=== PATIENT | female | born 1985 | race Caucasian/White ===

== ENCOUNTER 2017-09-29 17:44 | Observation (INO) | payer OTHER ==
[~2017-09-29] VITALS: Ht 154.9 cm; Wt 57.6 kg
[~2017-09-29 17:44] MED LIST: AMOXIL500 MG PO; BACTRIM DS 8001 TAB PO; BUPRENORPHINE HC8 MG SL; PROTONIX40 M3 PO; ZOFRAN ODT4 M1 SL
--- NOTE | 2017-09-29 18:02 | ED GI/GU/ABDOMINAL COMPLAINT ---
History of Present Illness General Chief Complaint: Abdominal Pain/Flank Pain Stated Complaint: SENT FROM OUTPATIENT FOR ACUTE JASON Source: patient Exam Limitations: no limitations Vital Signs & Intake/Output Vital Signs & Intake/Output Vital Signs Date Time Temp Pulse Resp B/P B/P Pulse O2 O2 Flow FiO2 Mean Ox Delivery Rate 09/30 1638 98.3 75 20 124/58 100 Room Air 09/30 1526 99.4 68 18 120/80 96 ED Intake and Output 10/01 0000 09/30 1200 Intake Total 500 800 Output Total 200 Balance 300 800 Intake, IV 800 Intake, Oral 500 0 Output, Urine 200 Allergies Coded Allergies: NO KNOWN ALLERGIES (05/24/12) Triage Note: PT WALKED OVER FROM OUT PT US , PT HERE DUE TO GALL STONES. PT STATES THAT MONDAY THAT SHE STARTED WITH RUQ ABD PAIN THAT SHOOTS INTO HER BACK, HAD N/V ON MONDAY. STATES THAT SINCE IT HAS JUST BEEN SHARP PAIN. DENIES FEVERS. Triage Nurses Notes Reviewed? yes ? N Is pt currently ? No Onset: Gradual Duration: day(s): (6) Timing: no prior history Quality/Severity: sharpness, stabbing Severity Numbers: 8 Location: epigastric, right upper quadrant Activities at Onset: none Prior Abdominal Problems: none No Modifying Factors: none Associated Symptoms: N/V HPI: Patient is a 32-year-old female with history of opiate abuse presenting to the emergency Department chief complaint of epigastric and right upper quadrant pain that began approximately 6 days ago, with onset she had associated nausea and vomiting which lasted one day and then resolved. No diarrhea. She was seen and evaluated in the emergency department and diagnosed with gastritis. Pain improved with GI cocktail. Patient saw her primary care physician after being seen at the hospital and they ordered an outpatient ultrasound. Patient diagnosed with acute cholecystitis and sent to the ER for further evaluation and surgical consultation. Patient denies any nausea at this time. Pain is currently moderate. (Buddy SALVADOR,Maribel) Reconcile Medications Biotin (Unknown Strength) TAB.CHEW (Unknown Dose) PO DAILY SUPPLEMENT ( Reported) Buprenorphine HCl/Naloxone HCl (Suboxone 8 MG-2 MG Sl Film) 8 MG-2 MG FILM 1 STR SL BID MENTAL HEALTH (Reported) Buprenorphine HCl/Naloxone HCl (Suboxone 8 MG-2 MG Sl Film) 8 MG-2 MG FILM 0.5 STR SL QPM MENTAL HEALTH (Reported) Multiple Vitamin (Multivitamins) 1 EACH TABLET 1 TAB PO DAILY SUPPLEMENT ( Reported) Ondansetron (Zofran Odt) 4 MG TAB.RAPDIS 1 TAB SL TID PRN nausea Pantoprazole Sodium (Protonix) 40 MG TABLET.DR 1 TAB PO DAILY gastritis Tramadol HCl 50 MG TABLET 1-2 TAB PO Q4P PRN PAIN Vitamin B Complex 1 EACH CAPSULE 1 CAP PO DAILY SUPPLEMENT (Reported) (Ary GAINES,Tiffanie) Past History Travel History Traveled to [place] past 21 day No Medical History Any Pertinent Medical History? see below for history Neurological: NONE Cardiovascular: NONE Respiratory: NONE Gastrointestinal: NONE Hepatic: NONE Renal: NONE Musculoskeletal: chronic back pain Psychiatric: anxiety Endocrine: NONE Blood Disorders: NONE Cancer(s): NONE Surgical History Surgical History: non-contributory Psychosocial History What is your primary language Romansh Tobacco Use: Current Daily Use Daily Tobacco Use Amount/Type: => 5 Cigarettes daily ETOH Use: denies use Illicit Drug Use: denies illicit drug use Family History Hx Contributory? No (Maribel Ortega) Review of Systems Review of Systems Constitutional: Reports: see HPI. Comments Review of systems: See HPI, All other systems negative. Constitutional, no chills fever or weight loss HEENT: No visual changes no sore throat no congestion Cardiovascular: No chest pain ,palpitation Skin, no jaundice no rashes Respiratory: No dyspnea cough sputum or hemoptysis GI: No DIARRHEA : No dysuria No hematuria Muscle skeletal: no back pain, no neck pain, Neurologic: No numbness no confusion NO HEADACHES Psych: No stress anxiety or depression,. Heme/endocrine: No bruising no bleeding no polyuria or polydipsia Immunology: No splenectomy or history of AIDS (Maribel Ortega) Physical Exam Physical Exam General Appearance: well developed/nourished, no apparent distress, alert, awake Gastrointestinal: normal bowel sounds, soft, guarding, tenderness Comments: Well-developed well-nourished person in NO DISTRESS HEENT: ATRAUMATIC, NORMAL CEPHALIC Neck: NORMAL INSPECTION Back: Nontender, no CVA tenderness. Cardiovascular: Regular rate and rhythms no murmurs rubs or gallops Respiratory: Chest nontender. No respiratory distress.breath sounds clear to auscultation bilaterally Abdomen: Soft, DIFFUSE TENDERNERSS, MORE FOCALLY IN RUQ, POS BHATT SIGN, nondistended, no appreciable organomegaly. Normal bowel sounds. No ascites, POS GAURDING. Extremity: No edema Neuro: Alert oriented x3 Skin: No appreciable rash on exposed skin, skin is warm and dry. Psych: Mood and affect is normal, memory and judgment is normal. Core Measures ACS in differential dx? No Sepsis Present: No Sepsis Focused Exam Completed? No (Maribel Ortega) Progress Differential Diagnosis: appendicitis, biliary colic, cholecystitis, diverticulitis, gastritis, hepatitis, pancreatitis Plan of Care: Orders Procedure Date/time Status Regular Diet 09/30 D Active Discharge Patient 09/30 UNK Active Current Medications Sig/Yfn Start time Last Medication Dose Stop Time Status Admin Oxycodone HCl 10 MG Q4P PRN 09/30 1145 CAN (Roxicodone) Diagnostic Imaging: Viewed by Me: Ultrasound. Discussed w/RAD: Ultrasound. Radiology Impression: PATIENT: LOC SCHULZ PRESENT AGE: 32 PATIENT ACCOUNT NO: [id number] : 87 LOCATION: [facility] ORDERING PHYSICIAN: Anastasiia Epperson APRN SERVICE DATE: 09/29/176708 EXAM TYPE: US - US-COMPLETE ABDOMEN EXAMINATION: US ABDOMEN COMPLETE CLINICAL INFORMATION: Refer for abdominal ultrasound for right lower quadrant abdominal pain and epigastric tenderness. Patient states recurrent right upper quadrant pain since Monday, necessitating 2 emergency room visits. COMPARISON: None TECHNIQUE: Real-time imaging of the abdominal viscera. FINDINGS: PANCREAS: Normal. ABDOMINAL AORTA: The proximal segment is normal in caliber. INFERIOR VENA CAVA: Visualized portions are normal. LIVER: Normal. The liver demonstrates normal size, contour and echogenicity. No focal lesion or intrahepatic biliary duct dilatation. GALLBLADDER: Abnormal. The gallbladder is mildly enlarged, measuring 11 cm longitudinally and 4 cm transversely. There is abnormal gallbladder wall thickening and edema with the gallbladder wall measuring up to 0.4 cm in diameter. There is layering sludge within the gallbladder, and a 10 out of 10 positive sonographic Bhatt sign is elicited while scanning over the gallbladder. There is a 0.9 x 0.3 x 0.4 cm echogenic nonshadowing focus seen adherent to the anterior gallbladder wall, consistent with a small gallbladder polyp. No definite gallstones are seen. Findings are consistent with acute cholecystitis. COMMON BILE DUCT: Normal in caliber measuring 0.5 cm in diameter. RIGHT KIDNEY: Normal. No hydronephrosis. No renal calculi or focal parenchymal lesions. The kidney measures 10.4 cm in maximum dimension. LEFT KIDNEY: Normal. No hydronephrosis. No renal calculi or focal parenchymal lesions. The kidney measures 9.3 cm in maximum dimension. SPLEEN: Normal. The spleen measures 9.5 cm in maximum dimension. FREE FLUID: None. IMPRESSION: 1. Above findings are consistent with acute cholecystitis. Close clinical correlation is requested. 2. Otherwise unremarkable right upper quadrant ultrasound. Findings discussed with Dr. Garcia covering for Dr. Epperson 09/29/2017, 5:[address] Looney's instructions, the patient has been escorted to the emergency room for further evaluation. Findings also discussed with Dr. Tiffanie Mcallister 09/29/2017, approximately 5:48 PM. DICTATED BY: Kerri Pollock MD DATE/TIME DICTATED:09/29 TRAY CHECKER:LINO DATE/TIME TRANSCRIBED:09/29/171745 CONFIDENTIAL, DO NOT COPY WITHOUT APPROPRIATE AUTHORIZATION. Initial ED EKG: none (Maribel Ortega) Departure Departure Time of Disposition: 1923 Disposition: STILL A PATIENT Condition: Stable Clinical Impression Primary Impression: Acute cholecystitis Referrals: Anastasiia Epperson APRN (PCP/Family) Departure Forms: Customer Survey General Discharge Information Observation Note Spoke With: Case GAINES,Magdiel Zabala Physician Advisor Notified: EMILIA PHELAN DO Place Patient In: Non-ED OBS Care Area Rationale for Observation: My rational for observation is as follows . Patient requiring IV antibiotics, surgical intervention to remove gallbladder, pain management. (Maribel Ortega) Departure Prescriptions: Current Visit Scripts Tramadol HCl 1-2 TAB PO Q4P PRN PAIN #30 TAB PA/STRAIGHT TRUCK DRIVER Co-Sign Statement Statement: ED Attending supervision documentation- [] I saw and evaluated the patient. I have also reviewed all the pertinent lab results and diagnostic results. I agree with the findings and the plan of care as documented in the PA's/STRAIGHT TRUCK DRIVER's documentation. [X] I have reviewed the ED Record and agree with the PA's/STRAIGHT TRUCK DRIVER's documentation. [] Additions or exceptions (if any) to the PAs/STRAIGHT TRUCK DRIVER's note and plan are summarized below: [] (Ary GAINES,Tiffanie) Initial ED EKG: none Departure Departure Time of Disposition: 1923 Disposition: STILL A PATIENT Condition: Stable Clinical Impression Primary Impression: Acute cholecystitis Referrals: Anastasiia Epperson APRN (PCP/Family) Departure Forms: Customer Survey General Discharge Information Observation Note Spoke With: Case GAINES,Magdiel Zabala Physician Advisor Notified: EMILIA PHELAN DO Place Patient In: Non-ED OBS Care Area Rationale for Observation: My rational for observation is as follows . Patient requiring IV antibiotics, surgical intervention to remove gallbladder, pain management.
[2017-09-29 18:11] LABS: ABSOLUTE BASOPHIL COUNT 0 /CUMM (0.0-0.2); ABSOLUTE EOSINOPHIL COUNT 0.1 /CUMM (0.0-0.7); ABSOLUTE GRANULOCYTE CT 5.4 /CUMM (1.4-6.5); ABSOLUTE LYMPH COUNT 1.6 /CUMM (1.2-3.4); ABSOLUTE MONOCYTE COUNT 0.6 /CUMM (0.10-0.60); BASOPHIL % 0.1 % (0.0-2.0); EOSINOPHIL % 1.1 % (0-5); GRANULOCYTE % 70.6 % (42.2-75.2); MEAN CORPUSCULAR HGB CONC 33.1 G/DL (33.0-37.0); MEAN CORPUSCULAR VOLUME 87.5 FL (81.0-99.0); MEAN PLATELET VOLUME 7.9 FL (7.4-10.4); PLATELET COUNT 359 /CUMM (130-400); RBC DISTRIBUTION WIDTH 13.1 % (11.5-14.5); RED BLOOD CELL CT 5.03 /CUMM (4.20-5.40); WHITE BLOOD CELL COUNT 7.7 /CUMM (4.8-10.8)
[2017-09-29 18:19] LABS: PT 12.1 SEC (9.4-12.5); PTT 26 SEC (25-37)
[2017-09-29] MEDS ORDERED: SUBOXONE 8 MG-1 EACH SL ×2 (19:36→19:37)
[2017-09-29] MEDS ORDERED: BIOTIN1000 MC1 PO (19:37)
[2017-09-29] MEDS ORDERED: MULTIVITAMINS1 EAC9 PO (19:37)
[2017-09-29] MEDS ORDERED: VITAMIN B COMP1 EACH PO (19:38)
--- NOTE | 2017-09-29 19:49 | History & Physical ---
John Meyers 09/[birth year]171943: General Information and HPI History of Present Illness: This is a 32 y/o F w/ PMHx of tobacco use (1/2 ppd x 15 years) and documented opiate abuse that presents to [facility] ED with 6 day history of worsening epigastric and right upper quadrant pain. Patient states she was in her usual state of health until last 09/25/17, she had a acute onset of epigastric pain associated with some nausea. At that time patient came to the [facility] ED where she was diagnosed with gastritis. She was discharged home with a perscription for protonix and zofran with instructions to follow up with a art model. Her pain continued and worsened the following days when she attempted to come back to [place] ED as she was instructed to do so, but was not seen "because the wait was to long". At that time she then made a appointment with her primary care provider who ordered a outpatient ultrasound of her abdomen. Ultrasound showed acute cholecystits, therefore patient was sent the the ED for further evaluation. In the ED the patient appears in no acute distress. She expressed frustration with this ongoing abdominal pain and was using foul language upon evaluation. She is afebrile and other vital signs are within normal limits. CBC, chemistry, and LFTs were obtained and showed no leukocytosis, e-lytes wnl, and normal LFTs. US shows acute cholecystitis. Therefore, a surgical consult was obtained. Allergies/Medications Allergies: Coded Allergies: NO KNOWN ALLERGIES (05/24/12) Home Med list Biotin (Unknown Strength) TAB.CHEW (Unknown Dose) PO DAILY SUPPLEMENT ( Reported) Buprenorphine HCl/Naloxone HCl (Suboxone 8 MG-2 MG Sl Film) 8 MG-2 MG FILM 1 STR SL BID MENTAL HEALTH (Reported) Buprenorphine HCl/Naloxone HCl (Suboxone 8 MG-2 MG Sl Film) 8 MG-2 MG FILM 0.5 STR SL QPM MENTAL HEALTH (Reported) Multiple Vitamin (Multivitamins) 1 EACH TABLET 1 TAB PO DAILY SUPPLEMENT ( Reported) Ondansetron (Zofran Odt) 4 MG TAB.RAPDIS 1 TAB SL TID PRN nausea Pantoprazole Sodium (Protonix) 40 MG TABLET.DR 1 TAB PO DAILY gastritis Vitamin B Complex 1 EACH CAPSULE 1 CAP PO DAILY SUPPLEMENT (Reported) Past History Travel History Traveled to [place] past 21 day No Medical History Neurological: NONE Cardiovascular: NONE Respiratory: NONE Gastrointestinal: NONE Hepatic: NONE Renal: NONE Musculoskeletal: chronic back pain Psychiatric: anxiety Endocrine: NONE Blood Disorders: NONE Cancer(s): NONE Surgical History Surgical History: non-contributory Past Family/Social History Psychosocial History ETOH Use: denies use Illicit Drug Use: denies illicit drug use Review of Systems Review of Systems Constitutional: Reports: see HPI. Exam & Diagnostic Data Last 24 Hrs of Vital Signs/I&O Vital Signs Date Time Temp Pulse Resp B/P B/P Pulse O2 O2 Flow FiO2 Mean Ox Delivery Rate 09/29 1840 Room Air 09/29 1751 98.4 92 18 127/88 Physical Exam General Appearance Alert, Oriented X3, No Acute Distress Skin No Rashes HEENT Atraumatic Cardiovascular Regular Rate, Normal S1, Normal S2, No Murmurs Lungs Clear to Auscultation, Normal Air Movement Abdomen RUQ pain with palpation, + murphys sign, bowel sounds present, mild guarding, no distention/rigidity Neurological Cranial Nerves 3-12 NL Extremities No Edema Vascular Normal Pulses Last 24 Hrs of Labs/Duong: Laboratory Tests 09/29/17 1800: Anion Gap 12, Estimated GFR > 60, BUN/Creatinine Ratio 17.8, Glucose 101 H, Lactic Acid 0.9, Calcium 9.8, Total Bilirubin 0.5, AST 14, ALT 31, Alkaline Phosphatase 68, Total Protein 7.3, Albumin 4.2, Globulin 3.1, Albumin/Globulin Ratio 1.4, Lipase 74, Total Beta HCG NEGATIVE, PT 12.1, INR 1.11, APTT 26, CBC w Diff NO MAN DIFF REQ, RBC 5.03, MCV 87.5, MCH 29.0, MCHC 33.1, RDW 13.1, MPV 7.9 , Gran % 70.6, Lymphocytes % 20.4 L, Monocytes % 7.8, Eosinophils % 1.1, Basophils % 0.1, Absolute Granulocytes 5.4, Absolute Lymphocytes 1.6, Absolute Monocytes 0.6, Absolute Eosinophils 0.1, Absolute Basophils 0 Assessment/Plan Assessment: A: This is a 32 y/o F w/ PMHx of tobacco use (1/2 ppd x 15 years) and documented opiate abuse that presents to [facility] ED with 6 day history of worsening epigastric and right upper quadrant pain with sonographic evidence of acute cholecystitis. She currently is HD stable, afebrile, and normal LFTs. She will be admited to surgical service under DR. Willoughby with plans for Laparoscopic cholecystectomy tomorrow morning. P: Discussed with Dr. Willoughby GI: regular diet now, NPO after midnight, OR tomorrow morning for Lap choly, zofran PRN CV: monitor vitals per protocol Pulm: pulm toilet w/ deep breathing/coughing Neuro: high risk opiod dependence, try to avoid narcotics post op, may need to contact patient pain manamgent provider, will give low dose IV morphine for now PRN ID: start IV unasyn, monitor for fevers : monitor I&Os Heme: h&h stable, athrombic pumps Fluids/e-lytes: IVFs @ 100mL/hr overnight Ortho: encourage ambulating as tolerated As Ranked By This Provider Problem List: 1. Acute cholecystitis Core Measures/Misc (04/09) Acute Coronary Syndrome ACS Diagnosis: No Congestive Heart Failure Congestive Heart Failure Diagnosis No Cerebrovascular Accident CVA/TIA Diagnosis: No VTE (View Protocol) VTE Risk Factors Surgery No Mechanical VTE Prophylaxis d/t N/A MechProphylax Ordered No VTE Pharm Prophylaxis d/t Surgical Contraindication Sepsis (View protocol) Sepsis Present: No Magdiel Willoughby MD 09/30/17 0804: Attending MD Review Statement Attending Statement Attending MD Statement: examined this patient, discuss w/resident/PA/DIRECTOR, reviewed images Attending Assessment/Plan: 32yo woman with first episode of abdominal pain, epigastric/RUQ that has been present for 5 days. Progression and examination c/w severe cholecystitis. Ultrasound confirms diagnosis. Recommend IV abx and prompt laparoscopic cholecystectomy. Informed of risks of surgery including bleeding, infection, conversion to open, organ injury and post cholecystectomy diarrhea. she agrees.
[2017-09-29 21:17] VITALS: BP 118/58
[2017-09-30 06:07] VITALS: BP 114/62
[2017-09-30 08:50] LABS: ABSOLUTE BASOPHIL COUNT 0 /CUMM (0.0-0.2); ABSOLUTE EOSINOPHIL COUNT 0.2 /CUMM (0.0-0.7); ABSOLUTE LYMPH COUNT 1.8 /CUMM (1.2-3.4); ABSOLUTE MONOCYTE COUNT 0.5 /CUMM (0.10-0.60); BASOPHIL % 0.2 % (0.0-2.0); EOSINOPHIL % 3.3 % (0-5); GRANULOCYTE % 61.1 % (42.2-75.2); MEAN CORPUSCULAR HGB 29.4 PG (27.0-31.0); MEAN CORPUSCULAR HGB CONC 33.6 G/DL (33.0-37.0); MEAN CORPUSCULAR VOLUME 87.4 FL (81.0-99.0); MEAN PLATELET VOLUME 8.2 FL (7.4-10.4); PLATELET COUNT 272 /CUMM (130-400); RBC DISTRIBUTION WIDTH 12.8 % (11.5-14.5); WHITE BLOOD CELL COUNT 6.5 /CUMM (4.8-10.8)
[2017-09-30 08:55] VITALS: BP 110/70
[2017-09-30 09:57] LABS: RED BLOOD CELL CT 3.77 /CUMM (4.20-5.40)
--- NOTE | 2017-09-30 11:46 | Operative Report ---
Operative/Inv Procedure Report Surgery Date: 09/30/17 Name of Procedure: Laparoscopic cholecystectomy Pre-Operative Diagnosis: Acute cholecystitis Post-Operative Diagnosis: Same Estimated Blood Loss: less than 50ml Surgeon/Center Sales And Service Associate: Case GAINES,Magdiel Zabala/Yari SALVADOR Anesthesia: general endotracheal tube Drains: None Specimens: Gallbladder Operative Indication: 32-year-old woman with 5 days of worsening right upper quadrant abdominal pain. She is found to have acute cholecystitis clinically and radiographically and presents for resection Operative/Procedure Note Note: After informed consent patient is brought to the operating room and laid supine. General anesthesia was obtained and her abdomen was prepped and draped. The skin above the umbilicus infiltrated with local anesthesia and a curvilinear incision made sharply. We came down through the subcutaneous tissues bluntly and grasped the fascia with [place]'s. A fasciotomy was created sharply and stay sutures placed. The peritoneum was entered sharply and a blunt Thurman port was placed. Pneumoperitoneum was achieved. 3, 5 mm ports were placed in the epigastrium and right upper quadrant after local anesthesia was instilled and under direct vision the camera. The right lower quadrant was explored and there was pelvis fluid, serosanguineous. The appendix was normal. She's placed in reverse Trendelenburg and rotated towards the left. The gallbladder is identified. It was severely inflamed and difficult to grasp due to the chronic and acute inflammatory changes. Percutaneous aspiration was performed. It was grasped at the dome and retracted towards the head. Infundibulum was then grasped. Adhesions to the undersurface were taken down with blunt and cautery dissection. The adhesions were quite thick and dense making the dissection difficult. We dissected both sides the triangle Calot peritoneal tissue with cautery. The artery was medial and its normal anatomic position. Location of the calot node assisted in identification. It was cauterized medially to allow it to be mobilized away from the duct. [place] was cleared of areolar tissue with cautery and blunt dissection. The arteries and duct were doubly ligated with clips. Gallbladder is removed from the fossa electrocautery. Posterior wall was quite edematous and chronically thickened making dissection prolonged. Gallbladder was placed in Endo Catch bag and cinched up. Right upper quadrant was and suction irrigated normal saline. Hemostasis achieved with cautery. The ports were then removed and the gallbladder delivered and passed off the field. The fascia was closed with 0 Vicryl suture. Skin incisions closed with 4-0 Vicryl. Steri-Strips and sterile dressing applied. Sponge and needle counts are correct. CC: Anastasiia Epperson APRN
--- NOTE | 2017-09-30 14:54 | PN- General Surgery ---
Subjective Subjective: Postop check Pt is now POD #0 s/p laparoscopic cholecystectomy. She is doing ok since surgery. Admits to pain, but recently recieved Tramadol with no response yet. Also c/o gas pains, which are improving with ambulation. Pt lost IV access and 1st attempt at replacement was not successful, so she refused further attempts and did not recieve IV Unasyn. Objective Vital Signs and I&Os Vital Signs Date Time Temp Pulse Resp B/P B/P Pulse O2 O2 Flow FiO2 Mean Ox Delivery Rate 09/30 0855 98.1 58 18 110/70 96 / 0607 98.7 63 20 114/62 96 / 2117 99.0 72 20 118/58 98 Room Air 09/29 2025 98.4 98 16 124/79 100 Room Air 09/29 1840 Room Air 09/29 1751 98.4 92 18 127/88 Intake & Output 09/30 1600 09/30 0800 / 0000 / 1600 09/29 0800 09/29 0000 Intake Total 800 1580 Output Total Balance 800 1580 Intake, IV 800 1100 Intake, Oral 0 480 Patient 127 lb Weight Physical Exam: Gen: Pt is awake and alert. NAD. Cardiac: regular Pulm: CTA bilaterally Abd: Soft and mildly distended. Dressings are clean and intact. +BS Assessment/Plan Assessment/Plan Pt is a 32 yo F with a hx of opioid dependence, now on Suboxone, who is s/p laparoscopic cholecystectomy for acute cholecystitis. -Ok to advance diet as tolerated. IVF were heplocked when IV access was lost initially. Pt is tolerating po liquids. -One dose of unasyn was ordered postop due to significantly edematous gallbladder noted intraop, but pt refused replacement of IV, so med wasn't given. -Continue ambulation as much as possible to relieve gas pains. -Tylenol or tramadol for pain control, as narcotics will not likely work well given suboxone. We can try toradol if needed as well. -OK to discharge home soon. Core Measures Venous Thromboembolism VTE Risk Factors Surgery No Mechanical VTE Prophylaxis d/t N/A MechProphylax Ordered No VTE Pharm Prophylaxis d/t Surgical Contraindication
--- NOTE | 2017-09-30 15:17 | Patient Discharge Instructions ---
Discharge Instructions General Discharge Information You were seen/treated for: Acute cholecystitis You had these procedures: Laparoscopic cholecystectomy Watch for these problems: Fever >101, increased abdominal pain, chest pain, difficulty breathing, drainage from wound. Do not soak the wound: Yes No bath, but you may shower: Yes Other wound care: You may remove your Band-Aids on 10/01/2017 and shower as desired. Leave the Steri-Strips in place until they fall off on their own. Diet Continue normal diet: Yes Activity Full Activity/No Limits: No Activity Self Limited: Yes Pounds, do NOT lift more than: 5 Other activity limits: No strenuous activity or heavy lifting, pushing, or pulling. No driving for 3-4 days or if taking narcotics. Acute Coronary Syndrome Inclusion Criteria At DC or during hospital stay patient has or had the following: ACS DIAGNOSIS No Discharge Core Measures Meds if any: Prescribed or Continued at Discharge Meds if any: NOT Prescribed or Continued at Discharge Congestive Heart Failure Inclusion Criteria At DC or during hospital stay patient has or had the following: CHF DIAGNOSIS No Discharge Core Measures Meds if any: Prescribed or Continued at Discharge Meds if any: NOT Prescribed or Continued at Discharge Cerebrovascular accident Inclusion Criteria At DC or during hospital stay patient has or had the following: CVA/TIA Diagnosis No Discharge Core Measures Meds if any: Prescribed or Continued at Discharge Meds if any: NOT Prescribed or Continued at Discharge Venous thromboembolism Inclusion Criteria VTE Diagnosis No VTE Type NONE VTE Confirmed by (Test) NONE Discharge Core Measures - Per Current guidelines, there needs to be overlap - treatment for the first 5 days of Warfarin therapy. - If discharged on Warfarin prior to 5 days of - overlap therapy, the patient will need to be - assessed for post discharge needs including - *Post discharge parental anticoagulation - *Warfarin and/or parental anticoagulation education - *Follow up date to check INR post discharge At least 5 days overlap therapy as Inpatient No Meds if any: Prescribed or Continued at Discharge Note: Overlap Therapy is Warfarin and Anticoagulant Meds if any: NOT Prescribed or Continued at Discharge
[2017-09-30 15:26] VITALS: BP 120/80
[2017-09-30] MEDS ORDERED: TRAMADOL HCL50 M1 PO (15:52)
[2017-09-30 16:38] VITALS: BP 124/58
== END 2017-09-30 17:16 ==
LOC: ERH 17:44 → ERHI 19:45 → ENRESERV 20:14 → ENTRNSPT 20:38 → EDTRNSPTSTS 20:52 → EDTRNSPT 20:52 → 2NB 21:02 → CMPTRNSPT 21:44 → ENTRNSPT 09-30 12:12 → 2NB 09-30 12:38 → CMPTRNSPT 09-30 12:58 → 2NB 09-30 17:16
PROVIDERS: Emergency Medicine; Physician Assistant Surgical
DX: K81.2 Acute cholecystitis with chronic cholecystitis (principal); K21.9 Gastro-esophageal reflux disease without esophagitis; F17.200 Nicotine dependence, unspecified, uncomplicated; R10.31 Right lower quadrant pain
CPT/HCPCS: 6040; 36592; 82436; 96374; 96375; 96376; C9399; G0378; J0131; J1885; J2405; J7042